=== PATIENT | male | born 1960 | race Caucasian/White ===

== ENCOUNTER 2020-01-25 08:28 | Inpatient (IN) | payer OTHER ==
--- OUTSIDE RECORDS SUMMARY | 2020-01-25 08:33 | XMS ---
:1960 Author Organization [facility] Support Name Relationship Address Phone UE Unavailable Unavailable Unavailable HUANG ROMEO PARTNER [address] [place] [address] Re-disclosure Warning The records that you are about to access may contain information from federally- assisted alcohol or drug abuse programs. If such information is present, then the following federally mandated warning applies: This information has been disclosed to you from records protected by federal confidentiality rules (42 CFR part 2). The federal rules prohibit you from making any further disclosure of this information unless further disclosure is expressly permitted by the written consent of the person to whom it pertains or as otherwise permitted by 42 CFR part 2. A general authorization for the release of medical or other information is NOT sufficient for this purpose. The Federal rules restrict any use of the information to criminally investigate or prosecute any alcohol or drug abuse patient.The records that you are about to access may contain highly sensitive health information, the redisclosure of which is protected by Article 27-F of the [facility] Public Health law. If you continue you may haveaccess to information: Regarding HIV / AIDS; Provided by facilities licensed or operated by the [facility] Office of Mental Health; or Provided by the [facility] Office for People With Developmental Disabilities. If such information is present, then the following [facility] mandated warning applies: This information has been disclosed to you from confidential records which are protected by state law. State law prohibits you from making any further disclosure of this information without the specific written consent of the person to whom it pertains, or as otherwise permitted by law. Any unauthorized further disclosure in violation of state law may result in a fine or detention sentence or both. A general authorization for the release of medical or other information is NOT sufficient authorization for further disclosure. Insurance Providers Payer name Policy type Policy ID Covered Covered republican's Policy P chaparrita / Coverage republican ID relationship to Gay Inf ormation type gay MEDICAID [id number] SP [id number] [facility] [id number] SP [id number] MEDICARE
--- NOTE | 2020-01-25 09:03 | BHS.RME ---
Substance Use & Tx History - Substance Use History Alcohol Substance amount: 6 22oz pack Frequency of use: Daily Substance route: Oral Date of Last Use: 01/24/20 - Last Treatment Date of last treatment: 1st time in detox Physical/Psych/Mental Status - Behavior General Behavior: Increased activity (restlessness, agitation) Eye Contact: Normal Other Behaviors: Mannerisms - Cooperativeness Cooperativeness: Cooperative - Thinking Thought Processes: Logical, Goal Directed Thought content: Future oriented - Physical Health Problems Is patient presently having any pain?: No Does patient presently have any injuries (include location): No Does patient currently have a fever: No CIWA Nausea/Vomitin Muscle Tremors: 2 Anxiety: 2 Agitation: 2 Paroxysmal Sweats: 1-Minimal Palms Moist Orientation: 0-Oriented Tacttile Disturbances: 2-Mild Itch/Numbness/Burn Auditory Disturbances: 0-None Visual Disturbances: 0-None Headache: 2-Mild CIWA-Ar Total Score: 13
[2020-01-25 09:05] VITALS: BMI 23.9
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
[2020-01-25] MEDS ORDERED: ACETAMINOPHEN 325 MG TABLET (FP) PO PRN ×2 (09:29)
[2020-01-25] MEDS ORDERED: MAGNESIUM HYDROX 2400MG/30ML ORAL SUSPENSION 30 ML CUP PO PRN (09:29)
[2020-01-25] MEDS ORDERED: MENTHOL/PHENOL 1 EACH UD MM PRN (09:29)
[2020-01-25] MEDS ORDERED: chlordiazePOXIDE HCL 25 MG CAPSULE PO PRN (09:29)
[2020-01-25] MEDS ORDERED: IBUPROFEN 400 MG TABLET (FP) PO PRN (09:29)
[2020-01-25] MEDS ORDERED: ONDANSETRON *ODT* 4 MG TABLET SL PRN (09:29)
[2020-01-25] MEDS ORDERED: MAG HYDROX/AL HYDROX/SIMETH 30 ML UNIT-DOSE CUP PO PRN (09:29)
[2020-01-25] MEDS ORDERED: METHOCARBAMOL 500 MG TABLET PO PRN (09:29)
[2020-01-25] MEDS ORDERED: BISMUTH SUBSALICYLATE 524 MG/30 ML UD PO PRN (09:29)
[2020-01-25] MEDS ORDERED: MAGNESIUM CITRATE 300 ML BOTTLE PO PRN (09:29)
--- OUTSIDE RECORDS SUMMARY | 2020-01-25 09:29 | XMS ---
:1960 Author Organization [facility] Support Name Relationship Address Phone UE Unavailable Unavailable Unavailable HUANG ROMEO PARTNER [address] [place] [address] Re-disclosure Warning The records that you are [...] is protected by Article 27-F of the [facility] Public Health law. If you continue you may haveaccess to information: Regarding HIV / AIDS; Provided by facilities licensed or operated by the [facility] Office of Mental Health; or Provided by the [facility] Office for People With Developmental Disabilities. If such information is present, then the following [facility] mandated warning applies: This information has been [...] law may result in a fine or skilled nursing sentence or both. A general authorization for the release of medical or other information is NOT sufficient authorization for further disclosure. Insurance Providers Payer name Policy type Policy ID Covered Covered republican's Policy P chaparrita / Coverage republican ID relationship to Gay Inf ormation type gay MEDICAID [id number] SP [id number] [facility] [id number] SP [id number] MEDICARE
[2020-01-25] MEDS: chlordiazePOXIDE HCL 25 MG CAPSULE PO SCH ×3 (11:16→23:09)
[2020-01-25] MEDS: hydrOXYzine PAMOATE 25 MG CAPSULE (FP) PO SCH ×4 (11:20→23:11)
[2020-01-25] MEDS: PRENATAL VITAMINS W/ FOLIC ACID TABLET (FP) PO SCH (11:20)
[2020-01-25 14:05] LABS: HEMATOCRIT 31.8 % (35.4-49); HEMOGLOBIN 10.1 GM/dL (11.7-16.9); MCH 24.9 pg (25.7-33.7); MCHC 31.6 g/dl (32.0-35.9); MEAN CELL VOLUME 78.6 fl (80-96); MEAN PLT VOLUME 10.7 fl (7.5-11.1); PLATELET COUNT 269 K/MM3 (134-434); RBC 4.05 M/mm3 (4.00-5.60); RDW 19.2 % (11.9-15.9); WHITE BLOOD COUNT 4.1 K/mm3 (4.0-10.0)
[2020-01-25 14:14] LABS: ALBUMIN 4.4 g/dl (3.4-5.0); BILIRUBIN,TOTAL 0.4 mg/dL (0.2-1); BLOOD UREA NITROGEN 5.9 mg/dL (7-18); CALCIUM 8.8 mg/dL (8.5-10.1); CREATININE 0.8 mg/dL (0.55-1.3); TOT PROT 8.6 g/dl (6.4-8.2)
[2020-01-25] MEDS ORDERED: MELATONIN 5 MG TABLETS PO SCH (22:00)
[2020-01-25] MEDS ORDERED: THIAMINE HCL 100 MG TABLET (FP) PO SCH (22:00)
[2020-01-26] MEDS: chlordiazePOXIDE HCL 25 MG CAPSULE PO SCH ×3 (05:43→17:08)
[2020-01-26] MEDS: hydrOXYzine PAMOATE 25 MG CAPSULE (FP) PO SCH ×3 (05:43→14:46)
[2020-01-26] MEDS: PRENATAL VITAMINS W/ FOLIC ACID TABLET (FP) PO SCH (10:24)
--- NOTE | 2020-01-26 16:45 | PN ---
[facility] CIWA - CIWA Score Nausea/Vomitin-Mild Nausea/No Vomiting Muscle Tremors: 2 Anxiety: 3 Agitation: 3 Paroxysmal Sweats: 2 Orientation: 0-Oriented Tacttile Disturbances: 0-None Auditory Disturbances: 0-None Visual Disturbances: 0-None Headache: 0-None Present CIWA-Ar Total Score: 11 [facility] Progress Note (SOAP) Subjective: Tremor Objective: 01/26/20 16:40 Last Vital Signs Temp Pulse Resp BP Pulse Ox 97.3 F L 91 H 18 123/55 L 99 01/26/20 12:24 01/26/20 12:24 01/26/20 12:24 01/26/20 12:24 01/26/20 09:52 Laboratory Tests 01/25/20 01/25/20 01/25/20 09:40 09:40 09:40 WBC 4.1 RBC 4.05 Hgb 10.1 L Hct 31.8 L MCV 78.6 L MCH 24.9 L MCHC 31.6 L RDW 19.2 H Plt Count 269 MPV 10.7 Platelet Comment No clotting detected Sodium Potassium Chloride Carbon Dioxide Anion Gap BUN Creatinine Est GFR (CKD-EPI)AfAm Est GFR (CKD-EPI)NonAf Random Glucose Calcium Total Bilirubin AST ALT Alkaline Phosphatase Total Protein Albumin Syphilis Serology Non-reactive COVID-19 (GRUPO) Not detected 01/25/20 09:40 WBC RBC Hgb Hct MCV MCH MCHC RDW Plt Count MPV Platelet Comment Sodium 131 L Potassium 4.0 Chloride 97 L Carbon Dioxide 27 Anion Gap 7 L BUN 5.9 L Creatinine 0.8 Est GFR (CKD-EPI)AfAm 113.33 Est GFR (CKD-EPI)NonAf 97.78 Random Glucose 85 Calcium 8.8 Total Bilirubin 0.4 AST 112 H ALT 101 H Alkaline Phosphatase 126 H Total Protein 8.6 H Albumin 4.4 Syphilis Serology COVID-19 (GRUPO) Labs reviewed: anemia, abnormal electrolytes, elevated LFTs noted Assessment: 01/26/20 16:42 Withdrawal sxs Anemia, abnormal electrolytes, elevated LFTs noted Plan: Continue detox Encourage PO water intake Anemia: continue vitamins, follow up with PCP for management Abnormal electrolytes: repeat BMP Elevated LFTs: repeat hepatic function panel Ordered for CMP
[2020-01-26 18:22] VITALS: BP 141/71; PULSE 97; TEMP 97.5
--- NOTE | 2020-01-26 19:40 | DS ---
[facility] Detox Discharge Summary Admission Date: 01/25/20 Discharge Date: 01/26/20 - History Present History: Alcohol Dependence Pertinent Past History: Hodgkin lymphoma - Physical Exam Results Vital Signs: Vital Signs Temperature 97.5 F L 01/26/20 16:30 Pulse Rate 97 H 01/26/20 16:30 Respiratory Rate 18 01/26/20 16:30 Blood Pressure 141/71 01/26/20 16:30 O2 Sat by Pulse Oximetry (%) 99 01/26/20 09:52 Pertinent Admission Physical Exam Findings: withdrawal sx Laboratory Last Values WBC 4.1 K/mm3 (4.0-10.0) 01/25/20 09:40 RBC 4.05 M/mm3 (4.00-5.60) 01/25/20 09:40 Hgb 10.1 GM/dL (11.7-16.9) L 01/25/20 09:40 Hct 31.8 % (35.4-49) L 01/25/20 09:40 MCV 78.6 fl (80-96) L 01/25/20 09:40 MCH 24.9 pg (25.7-33.7) L 01/25/20 09:40 MCHC 31.6 g/dl (32.0-35.9) L 01/25/20 09:40 RDW 19.2 % (11.9-15.9) H 01/25/20 09:40 Plt Count 269 K/MM3 (134-434) 01/25/20 09:40 MPV 10.7 fl (7.5-11.1) 01/25/20 09:40 Platelet Comment No clotting detected 01/25/20 09:40 Sodium 131 mmol/L (136-145) L 01/25/20 09:40 Potassium 4.0 mmol/L (3.5-5.1) 01/25/20 09:40 Chloride 97 mmol/L (98-107) L 01/25/20 09:40 Carbon Dioxide 27 mmol/L (21-32) 01/25/20 09:40 Anion Gap 7 MMOL/L (8-16) L 01/25/20 09:40 BUN 5.9 mg/dL (7-18) L 01/25/20 09:40 Creatinine 0.8 mg/dL (0.55-1.3) 01/25/20 09:40 Est GFR (CKD-EPI)AfAm 113.33 01/25/20 09:40 Est GFR (CKD-EPI)NonAf 97.78 01/25/20 09:40 Random Glucose 85 mg/dL (74-106) 01/25/20 09:40 Calcium 8.8 mg/dL (8.5-10.1) 01/25/20 09:40 Total Bilirubin 0.4 mg/dL (0.2-1) 01/25/20 09:40 AST 112 U/L (15-37) H 01/25/20 09:40 ALT 101 U/L (13-61) H 01/25/20 09:40 Alkaline Phosphatase 126 U/L (45-117) H 01/25/20 09:40 Total Protein 8.6 g/dl (6.4-8.2) H 01/25/20 09:40 Albumin 4.4 g/dl (3.4-5.0) 01/25/20 09:40 Syphilis Serology Non-reactive (NONREACTIVE) 01/25/20 09:40 COVID-19 (GRUPO) Not detected (Not Detected) 01/25/20 09:40 - Medication Discharge Medications: Ambulatory Orders NK [No Known Home Medication] 01/25/20 - Diagnosis (1) Alcohol dependence with withdrawal, uncomplicated Current Visit: Yes Status: Acute - AMA Did Patient Leave Against Medical Advice: Yes
[2020-01-27] MEDS ORDERED: chlordiazePOXIDE HCL 25 MG CAPSULE PO SCH (05:00)
[2020-01-28] MEDS ORDERED: chlordiazePOXIDE HCL 10 MG CAPSULE PO PRN
[2020-01-28] MEDS ORDERED: chlordiazePOXIDE HCL 10 MG CAPSULE PO SCH (05:00)
[2020-01-29] MEDS ORDERED: chlordiazePOXIDE HCL 10 MG CAPSULE PO SCH (05:00)
[2020-01-30] MEDS ORDERED: chlordiazePOXIDE HCL 10 MG CAPSULE PO ONE (05:00)
== END 2020-01-26 19:25 | disposition left against medical advice (07) | DRG 894 ==
LOC: YASAS 08:28 → Y6N 09:26
PROVIDERS: ADMIT Allergy & Immunology; ATTEND Allergy & Immunology
PROC: HZ2ZZZZ Detoxification Services for Substance Abuse Treatment (ICD-10-PCS; principal; 2020-01-25)
DX: F10.230 Alcohol dependence with withdrawal, uncomplicated (principal); F17.211 Nicotine dependence, cigarettes, in remission; D64.9 Anemia, unspecified; E87.8 Other disorders of electrolyte and fluid balance, not elsewhere classified; R94.5 Abnormal results of liver function studies; Z85.71 Personal history of Hodgkin lymphoma; Z90.81 Acquired absence of spleen
CPT/HCPCS: 36415; 80053; 85027; 86780; U0003